=== PATIENT | male | born 1970 ===

== ENCOUNTER 2017-09-17 07:20 | Day surgery (SDC) | payer OTHER ==
[~2017-09-17] VITALS: Ht 182.9 cm; Wt 150.6 kg
[~2017-09-17 07:20] MED LIST: CLIN1TS; Cardizem CD 12120 MG PO; LOSARTAN-HCTZ1 EACH PO; Lorazepam2 MG PO; Mobic15 MG PO; OMEPRAZOLE MAGN20 MG PO; SERT100 PO
== END 2017-09-17 07:55 | disposition home or self-care (01) ==
LOC: ORSCSDS 07:20
DX: K22.70 Barrett's esophagus without dysplasia (principal); Z53.9 Procedure and treatment not carried out, unspecified reason
CPT/HCPCS: J7120

== ENCOUNTER 2019-04-28 07:04 | Day surgery (SDC) | payer OTHER ==
[~2019-04-28] VITALS: Ht 185.4 cm; Wt 156.4 kg
== END 2019-04-28 09:20 | disposition home or self-care (01) ==
LOC: ORSCSDS 07:04
PROVIDERS: Internal Medicine Gastroenterology
PROC: 0DB58ZX Excision of Esophagus, Via Natural or Artificial Opening Endoscopic, Diagnostic (ICD-10-PCS; principal; 2019-04-28 08:30)
PROC: 0DB68ZX Excision of Stomach, Via Natural or Artificial Opening Endoscopic, Diagnostic (ICD-10-PCS; principal; 2019-04-28 08:30)
DX: K22.70 Barrett's esophagus without dysplasia (principal); K29.00 Acute gastritis without bleeding; G47.33 Obstructive sleep apnea (adult) (pediatric); E78.5 Hyperlipidemia, unspecified; I10 Essential (primary) hypertension; F32.9 Major depressive disorder, single episode, unspecified; E66.9 Obesity, unspecified; E66.01 Morbid (severe) obesity due to excess calories; Z68.42 Body mass index [BMI] 45.0-49.9, adult; Z79.899 Other long term (current) drug therapy
CPT/HCPCS: 88305; 88342; J0330; J0461; J2405; J2704; J7120